=== PATIENT | female | born 1995 | race Caucasian/White ===

== ENCOUNTER 2023-10-09 15:05 | Outpatient (CLI) | payer OTHER, SELFPAY ==
[2023-10-09 19:59] LABS: Alanine Aminotransferase 20 U/L (6-35); Albumin Level 4.3 g/dL (3.5-5.1); Alkaline Phosphatase 62 U/L (38-126); Anion Gap 4 mmol/L (8-16); Aspartate Amino Transferase 36 U/L (14-36); Bilirubin,Total 0.7 mg/dL (0.2-1.3); Blood Urea Nitrogen 12 mg/dL (7-17); Calcium 9.4 mg/dL (8.4-10.2); Carbon Dioxide 26 mmol/L (22-30); Chloride 104 mmol/L (98-107); Cholesterol 179 mg/dL (0-200); Estimated Glomerular Filt Rate > 60; Glucose 86 mg/dL (65-110); HDL Direct 56 mg/dL; Potassium 4.3 mmol/L (3.4-5.0); Sodium 134 mmol/L (137-145); Triglycerides 71 mg/dL (<150)
[2023-10-09 20:11] LABS: LDL Cholesterol Direct 99 mg/dL
[2023-10-12 09:59] LABS: CMV IgG Antibody <0.60 U/mL (<0.60)
== END 2023-10-09 15:06 | disposition home or self-care (01) ==
LOC: ANHGOSHLAB 15:07
PROVIDERS: PCP Family Medicine; Visit Provider Family Medicine
DX: Z00.8 Encounter for other general examination (principal); Z11.59 Encounter for screening for other viral diseases
CPT/HCPCS: 36415; 80053; 80061; 84443; 86644

== ENCOUNTER 2024-06-23 08:53 | Emergency (ER) | payer OTHER, SELFPAY ==
--- NOTE | ~2024-06-23 | XR_ITS ---
EXAMINATION: XR chest 2V DATE: 06/23/2024 09:32 INDICATION: Cough and fever TECHNIQUE: PA and lateral views of the chest were obtained. COMPARISON: None FINDINGS: The lungs are clear with no focal airspace opacities, pulmonary edema, pleural effusion or pneumothor ax. The cardiomediastinal silhouette is normal. Visualized bones and soft tissues are unremarkable. IMPRESSION: 1. No acute cardiopulmonary disease. Reviewed, dictated and finalized at location [facility]. [facility]
[2024-06-23 09:00] VITALS: BP 129/74; PULSE 83; RESP 18; TEMP 36.3; O2SAT 100
--- NOTE | 2024-06-23 09:20 | ED_ITS ---
HPI - General Adult General Chief complaint: Upper Respiratory Infection Stated complaint: Sore Throat/Cough Source: patient Mode of arrival: ambulatory Limitations: no limitations History of Present Illness HPI narrative: Patient presents for evaluation of cough and sore throat. She has been sick for approximately one week. She initially had a fever and chills but those symptoms have resolved. She feels like her chest is tight and she is hesitant to take a deep breath as it causes coughing episodes. She has tried tylenol, dayquil, nyquil, ugo-seltzer and mucinex. Symptoms persist. Her was recently sick but her symptoms are improving. Pt does not smoke or vape. Related Data Home Medications Medication Instructions Recorded Confirmed cetirizine 10 mg tablet (Zyrtec) 10 mg PO DAILY 02/10/20 06/23/24 valacyclovir 500 mg tablet 500 mg PO DAILY 02/09/24 06/23/24 Allergies Allergy/AdvReac Type Severity Reaction Status Date / Time No Known Allergies Allergy Verified 06/23/24 09:14 Review of Systems Review of Systems: CONSTITUTIONAL: Reports recent fever and chills, since resolved EYES: Denies visual changes, redness, or discharge. ENT: Reports sore throat. Denies rhinorrhea, congestion, or otalgia. CARDIOVASCULAR: Denies chest pain, palpitations, or edema. RESPIRATORY: Reports cough. Denies SOB. GASTROINTESTINAL: Denies abdominal pain, nausea, vomiting, or diarrhea. GENITOURINARY: Denies dysuria or hematuria. SKIN: Denies rash or itching. MUSCULOSKELETAL: Denies back pain, joint pain, or myalgia. NEUROLOGIC: Denies headache, numbness, dizziness, or weakness. PSYCHIATRIC: Denies anxiety or depression. 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 Seasonal allergies Surgical History Surgical History Hx of knee surgery Family History Family History Other Hypertension Social History Social History Smoking status: Never smoker Alcohol intake: current Drinks per week: 5 Substance use: never Substance use type: does not use Do You Feel Safe in your Home?: Yes Lack of Transportation: No Lack of Food: Never True Current Housing: I Have Housing Concerned About Future Housing: No Difficulty Paying Gas/Electric Bills: No Difficulty Paying for Meds: No Currently Unemployed: No Education: High School Diploma/GED Difficulty w/ Childcare or Family Care: No Living arrangements: with family Additional living arrangements comments: : [place] Occupation/Education: occupation Additional occupation/education comments: [employer] supervisor Gender identity (if verbalized by the patient): Female Sexual Orientation (if Verbalized by the Patient): Lesbian, Sommers, or Homosexual Spiritual care concerns: No Exam Narrative: GENERAL: Well-appearing, well-nourished, and in no acute distress. HEAD: Normocephalic, atraumatic. EYES: PERRLA and EOMI. ENT: Nares clear, no rhinorrhea or epistaxis. Mucous membranes moist. Oropharynx without tonsillar hypertrophy exudate or other lesions. Bilateral TMs pearly chavez nonbulging NECK: Supple. No adenopathy or masses. No carotid bruits or JVD CHEST:Cough present one xam. Clear to auscultation. No respiratory distress. No wheezes rales or rhonchi HEART: Regular rate and rhythm. No murmur heard. Normal peripheral pulses. ABDOMEN: Soft, nontender, nondistended, normal active bowel sounds. EXTREMITIES: Normal range of motion. No edema. SKIN: Warm, dry, no rash. NEURO: No focal deficits. Alert and oriented x3. PSYCH: Normal mood and affect. Course Course Emergency Course: This is a 29-year-old female who presented for evaluation of sick symptoms. Strep negative. Chest x-ray negative. Through shared decision making opted to receive her prescription for antibiotics in the event that her symptoms persist or worsen. Will discharge with Tessalon. Increase hydration. [id number] agents for symptom management. Follow up with primary provider. Go to the ER for worsening symptoms. Patient in agreement with plan of care Level of Care: Express Care Visit Vital Signs Vital signs: Vital Signs Temperature 36.3 C L 06/23/24 09:00 Pulse Rate 83 06/23/24 09:00 Respiratory Rate 18 06/23/24 09:00 Blood Pressure 129/74 06/23/24 09:00 Pulse Oximetry 100 06/23/24 09:00 Oxygen Delivery Room Air 06/23/24 09:00 Temperature 36.3 C L 06/23/24 09:00 Pulse Rate 83 06/23/24 09:00 Respiratory Rate 18 06/23/24 09:00 Blood Pressure 129/74 06/23/24 09:00 Pulse Oximetry 100 06/23/24 09:00 Oxygen Delivery Room Air 06/23/24 09:00 Medical Decision Making Vital Signs Vital Signs: Vital Signs Temperature 36.3 C L 06/23/24 09:00 Pulse Rate 83 06/23/24 09:00 Respiratory Rate 18 06/23/24 09:00 Blood Pressure 129/74 06/23/24 09:00 Pulse Oximetry 100 06/23/24 09:00 Oxygen Delivery Room Air 06/23/24 09:00 Temperature 36.3 C L 06/23/24 09:00 Pulse Rate 83 06/23/24 09:00 Respiratory Rate 18 06/23/24 09:00 Blood Pressure 129/74 06/23/24 09:00 Pulse Oximetry 100 06/23/24 09:00 Oxygen Delivery Room Air 06/23/24 09:00 Lab Data Labs: Lab Results 06/23/24 Range/Units 09:35 POC Grp A Strep Screen Negative (Negative) Imaging Data Radiologist's impression: EXAMINATION: XR chest 2V DATE: 06/23/2024 09:32 INDICATION: Cough and fever TECHNIQUE: PA and lateral views of the chest were obtained. COMPARISON: None FINDINGS: The lungs are clear with no focal airspace opacities, pulmonary edema, pleural effusion or pneumothorax. The cardiomediastinal silhouette is normal. Visualized bones and soft tissues are unremarkable. IMPRESSION: 1. No acute cardiopulmonary disease. Discharge Plan Discharge Clinical Impression: Pharyngitis Patient Disposition: Home, Self-Care Condition: Stable Instructions: Antibiotic Form, Pharyngitis (ED) Patient Language: Stateless Prescriptions: New amoxicillin-pot clavulanate 875-125 mg tablet 1 tablet PO Q12H Qty: 20 0RF benzonatate 200 mg capsule 200 mg PO TID PRN (Reason: cough) Qty: 30 0RF No Action cetirizine [Zyrtec] 10 mg tablet 10 mg PO DAILY valacyclovir 500 mg tablet 500 mg PO DAILY Follow-up/Referrals: Melania Mcleod MD [Primary Care Provider] - Time of Disposition: 10:01
[2024-06-23 09:36] LABS: EDSTREPNEGPOS1 Negative (Negative)
== END 2024-06-23 10:04 | disposition home or self-care (01) ==
PROVIDERS: Emergency Provider Nurse Practitioner; PCP Family Medicine
DX: J02.9 Acute pharyngitis, unspecified (principal)
CPT/HCPCS: 71046; 87081; 87880; 99213; G0463

== ENCOUNTER 2025-02-13 10:37 | Outpatient (NON) | payer OTHER, SELFPAY | END 2025-02-13 10:38 | disposition home or self-care (01) | LOC: ANHLAB 02-14 10:39 | PROVIDERS: PCP Family Medicine; Visit Provider Family Medicine | DX: Z01.419 Encounter for gynecological examination (general) (routine) without abnormal findings (principal) | CPT/HCPCS: 88142 ==